=== PATIENT | female | born 1985 | race American Indian/Alaskan Native ===

== ENCOUNTER 2016-08-07 10:43 | Outpatient (CLI) | payer MEDICAID ==
[2016-08-07 11:24] VITALS: BP 100/56
[2016-08-07] MEDS ORDERED: LACTATED RINGERS 500 ML IV ONE (12:14)
[2016-08-07] MEDS ORDERED: LACTATED RINGERS 1,000 ML IV SCH (14:00)
== END 2016-08-07 15:26 | disposition home or self-care (01) ==
LOC: TRG 10:43
PROVIDERS: ATTEND Obstetrics & Gynecology Gynecology
DX: Z34.90 Encounter for supervision of normal pregnancy, unspecified, unspecified trimester (principal); Z3A.00 Weeks of gestation of pregnancy not specified
CPT/HCPCS: 36415; 59025; 82951; 82962; 96360; 96361; J7120

== ENCOUNTER 2016-08-21 11:29 | Outpatient (CLI) | payer MEDICAID ==
[2016-08-21] MEDS ORDERED: CELESTONE SOLUSPAN IM ONE (12:00)
[2016-08-21] MEDS ORDERED: LACTATED RINGERS 500 ML IV ONE (20:19)
== END 2016-08-21 13:00 | disposition home or self-care (01) ==
LOC: TRG 11:29
PROVIDERS: ATTEND Obstetrics & Gynecology Gynecology
DX: O47.9 False labor, unspecified (principal); Z3A.00 Weeks of gestation of pregnancy not specified
CPT/HCPCS: 96372; J0702

== ENCOUNTER 2016-08-22 11:18 | Outpatient (CLI) | payer MEDICAID ==
[2016-08-22] MEDS ORDERED: CELESTONE SOLUSPAN IM ONE (12:00)
== END 2016-08-22 11:35 | disposition home or self-care (01) ==
LOC: TRG 11:18
PROVIDERS: ATTEND Obstetrics & Gynecology
DX: O47.9 False labor, unspecified (principal); Z3A.00 Weeks of gestation of pregnancy not specified
CPT/HCPCS: 96372; J0702